=== PATIENT | female | born 1970 | race Caucasian/White ===

== ENCOUNTER → 2018-08-01 | Day surgery (SDC) | payer BC ==
--- NOTE | 2018-08-01 16:32 | OP ---
DATE OF OPERATION: 08/01/2018 PREOPERATIVE DIAGNOSIS: Left breast intraductal debris, 11 o'clock, 1 cm from the nipple. POSTOPERATIVE DIAGNOSIS: Left breast intraductal debris, 11 o'clock, 1 cm from the nipple. PROCEDURE: Left breast ultrasound-guided ductal/cyst aspiration. ANESTHESIA: Local. ATTENDING SURGEON: Alyx Biggs MD ESTIMATED BLOOD LOSS: Minimal. COMPLICATIONS: None. DESCRIPTION OF PROCEDURE: Patient was made aware of the risks and benefits of the procedure and consented. She was placed in the supine position. Under sterile conditions with 1% lidocaine for local anesthesia, small rowena was made in the skin. Using an 18-gauge needle under ultrasound guidance, I was able to aspirate a small amount of nonbloody, creamy yellow fluid, completely decompressing the cyst with no residual nodularity. No specimen was submitted. Well tolerated by patient. Sterile dressing applied. Return to office in 6 months for repeat examination and ultrasound. Ashley [id number]
== END | disposition home or self-care (01) ==
LOC: FRADUS-SUR 14:43
PROVIDERS: ATTEND Surgery Surgical Oncology
PROC: 0H9U3ZZ Drainage of Left Breast, Percutaneous Approach (ICD-10-PCS; principal; 2018-08-01)
DX: N60.02 Solitary cyst of left breast (principal)
CPT/HCPCS: 19000; 76942-TC